=== PATIENT | female | born 1960 | race Caucasian/White ===

== ENCOUNTER 2018-12-01 02:52 | Inpatient (IN) | payer MEDICARE, MEDICAID ==
[~2018-12-01] VITALS: Ht 160 cm; Wt 55.5 kg
[2018-12-01] MEDS ORDERED: piperacillin/tazo 3.375gm/50ml 50 ML IV ONE (02:55)
[2018-12-01] MEDS ORDERED: vancomycin/NS 1 GM ADD-VANTAGE 250 ML IV ONE (02:55)
--- NOTE | 2018-12-01 03:16 | NUR ---
DANIELA WOLF ORDERED HOLD ON VANCOMYCIN AT THIS TIME
[2018-12-01 03:21] LABS: BASOPHILS # (AUTO) 0.1 X10'3 (0-0.2); BASOPHILS % (AUTO) 0.8 % (0-1); EOSINOPHILS # (AUTO) 0.2 X10'3 (0-0.9); HEMATOCRIT 35.1 % (35.0-45.0); HEMOGLOBIN 11.8 g/dl (12.0-16.0); LYMPHOCYTES # (AUTO) 2.5 X10'3 (1.1-4.8); LYMPHOCYTES % (AUTO) 14.1 % (21-51); MEAN CORPUSCULAR HEMOGLOBIN 27.6 PG (27.0-31.0); MEAN CORPUSCULAR HGB CONC 33.7 g/dL (33.0-36.5); MEAN CORPUSCULAR VOLUME 82.1 FL (78-98); MEAN PLATELET VOLUME 8.1 FL (7.4-10.4); MONOCYTES # (AUTO) 1.4 X10'3 (0-0.9); NEUTROPHILS # (AUTO) 13.7 X10'3 (1.8-7.7); NEUTROPHILS % (AUTO) 76.1 % (42-75); PLATELET COUNT 480 X10'3 (140-440); RED BLOOD COUNT 4.28 X10'6 (4.20-5.60); RED CELL DISTRIBUTION WIDTH 13.1 % (11.5-14.5)
[2018-12-01] MEDS ORDERED: ASPI-1265 PO (03:34)
[2018-12-01] MEDS ORDERED: QUET-1 PO (03:34)
[2018-12-01] MEDS ORDERED: INSU100V30 SQ (03:34)
[2018-12-01] MEDS ORDERED: OMEP40CA13 PO (03:34)
[2018-12-01] MEDS ORDERED: INSU100C10 SQ (03:34)
[2018-12-01] MEDS ORDERED: ANTIBIOTIC (03:34)
[2018-12-01 03:35] LABS: ALANINE AMINOTRANSFERASE 13 U/L (12-78); ALBUMIN 2.5 G/DL (3.4-5.0); ALBUMIN/GLOBULIN RATIO 0.5 (1.1-1.5); ALKALINE PHOSPHATASE 141 IU/L (46-116); ANION GAP 9 (8-16); ASPARTATE AMINO TRANSFERASE 8 U/L (10-37); BILIRUBIN,TOTAL 0.8 MG/DL (0.1-1.0); BLOOD UREA NITROGEN 14 MG/DL (7-18); C-REACTIVE PROTEIN 8.99 MG/DL (0.0-0.5); CALCIUM 8.8 MG/DL (8.5-10.1); CHLORIDE 97 MMOL/L (99-107); GLUCOSE 223 MG/DL (70-104); MAGNESIUM 1.4 MG/DL (1.5-2.4); POTASSIUM 3.2 MMOL/L (3.5-5.1); SODIUM 135 MMOL/L (135-145); TOTAL CARBON DIOXIDE 29.4 MMOL/L (24-32); TOTAL PROTEIN 7.6 G/DL (6.4-8.2); eGFR 57 ML/MIN
--- NOTE | 2018-12-01 03:37 | NUR ---
AMBULATED TO BATHROOM WITH WALKER. STAND BY ASSIST.
[2018-12-01 03:43] LABS: PARTIAL THROMBOPLASTIN TIME 33 SECONDS (22-32)
[2018-12-01 03:58] LABS: URINE HCG NEGATIVE (NEG)
[2018-12-01 04:02] LABS: COLOR,URINE YELLOW (Yellow); GLUCOSE, URINE 100 mg/dl (Neg); KETONES,URINE NEGATIVE (Neg); LEUKOCYTE ESTERASE ,URINE NEGATIVE (Neg); NITRITES, URINE NEGATIVE (Neg); OCCULT BLOOD,URINE NEGATIVE (Neg); PROTEIN,URINE 30 mg/dl (Neg)
[2018-12-01] MEDS ORDERED: magnesium hydroxide 30ml (MOM) UD suspension PO PRN (04:05)
[2018-12-01] MEDS ORDERED: acetaminophen 325mg tablet PO PRN (04:05)
[2018-12-01] MEDS ORDERED: HYDROmorphone inj. 0.5 MG/0.5 ML DISP.SYRIN IV PRN (04:05)
[2018-12-01 04:06] LABS: CLARITY,URINE SLIGHTLY CLOUDY (Clear); UA COLLECTION TYPE CLN CATCH MIDSTREAM
[2018-12-01] MEDS ORDERED: dextrose 50%-water 50ml dispensing syringe IV PRN ×2 (04:10)
[2018-12-01] MEDS ORDERED: glucagon, human recombinant 1mg kit SUBCUT PRN (04:10)
[2018-12-01] MEDS ORDERED: MESSAGE TO PHARMACY PO ONE (04:10)
[2018-12-01] MEDS: ondansetron/PF 4mg/2ml inj IV PRN (04:19)
[2018-12-01] MEDS: normal saline 1000ml 1,000 ML IV SCH ×2 (04:20→14:50)
[2018-12-01 04:25] LABS: BACTERIA,URINE 1+ /HPF (Neg); RBC,URINE NONE SEEN /HPF (0-2); SQUAMOUS EPITHELIAL CELL,UR MANY /LPF (FEW); WBC,URINE 0-4 /HPF (0-4)
[2018-12-01 04:42] LABS: HEMOGLOBIN A1C 9.5 % (4.5-6.2)
[2018-12-01] MEDS ORDERED: potassium CL 10mEq/100ml bag 100 ML IV PRN ×2 (06:40→09:45)
[2018-12-01] MEDS ORDERED: potassium Cl 20 mEq SR tablet PO PRN ×3 (06:40→09:45)
[2018-12-01] MEDS: mag hydrox/Alum hydrox/simeth 30ml oral suspension PO PRN (07:05)
[2018-12-01] MEDS: potassium Cl 20 mEq SR tablet PO PRN ×4 (07:05→23:25)
--- NOTE | 2018-12-01 07:12 | NUR ---
called pharmacy for vanco 750mg dose. stated will make now and bring down.
[2018-12-01] MEDS: VANCOMYCIN 750MG IV in NS 250 ML IV SCH ×2 (07:30→20:46)
[2018-12-01] MEDS: pantoprazole 40mg Tablet.DR PO SCH (07:32)
[2018-12-01] MEDS: aspirin 81mg tab.chew PO SCH (07:33)
--- NOTE | 2018-12-01 07:40 | NUR ---
Attempted to call report. RN unavailable. will call back.
--- NOTE | 2018-12-01 07:50 | NUR ---
Received report from BLANE Duggan. waiting for patient.
[2018-12-01] MEDS: enoxaparin 50mg/0.5ml (from 3ml vial) syringe SUBCUT SCH ×2 (08:00→20:11)
--- NOTE | 2018-12-01 08:20 | NUR ---
Patient arrived to floor. VSS. no complaints.
[2018-12-01 08:46] VITALS: BP 111/57
[2018-12-01] MEDS ORDERED: magnesium 4gm in 100ml NS 100 ML IV PRN (09:45)
[2018-12-01] MEDS ORDERED: magnesium 2GM in 50ml NS 50 ML IV PRN (09:45)
[2018-12-01] MEDS ORDERED: metoclopramide 5 mg/ml inj IV PRN (09:45)
[2018-12-01] MEDS: piperacillin/tazo 3.375gm/50ml 50 ML IV SCH ×2 (10:52→19:21)
[2018-12-01] MEDS: magnesium Cl slow-release 64mg tablet PO PRN ×2 (10:53→23:24)
--- NOTE | 2018-12-01 11:07 | NUR ---
Patient refused afternoon vital signs. Addendum: 12/01/18 at 1108 by Mary Chicas RN Amended: Links added.
[2018-12-01] MEDS: insulin Lispro (HumaLOG) vial - multi-dose SQ SCH (13:16)
[2018-12-01] MEDS ORDERED: AMLO10TA PO (14:57)
[2018-12-01] MEDS ORDERED: ASPI-845 PO (14:57)
[2018-12-01] MEDS ORDERED: FAMO20TA8 PO (14:57)
[2018-12-01] MEDS ORDERED: NICO-731 TOP (14:57)
[2018-12-01] MEDS ORDERED: ATOR40TA71 PO (14:57)
[2018-12-01] MEDS ORDERED: COLL30OI TP (14:57)
[2018-12-01] MEDS ORDERED: METF-436 PO (14:58)
[2018-12-01] MEDS: HYDROcodone/acetaminophen 10/325mg tab PO PRN (15:50)
--- NOTE | 2018-12-01 16:18 | NUR ---
Malnutrition consult: Pt seen at bedside endorses a good appetite despite documented 25% PO intake at lunch today. Pt reports UBW of 150 lbs with current wt of 122 lbs which pt reports was taken last week at a clinic. Pt unsure of when wt loss occurred however states her dietary pattern had changed once she started having pain in her foot three months ago. Noted that H&P indicates pt recently lost her SO. It's likely that pt with decreased PO intake and some wt loss recently however unsure if wt loss was truly as significant as pt reports d/t no documented wt hx and pt reporting good appetite. Pt reporting unrealistic information such as no BM for several weeks however denies feeling constipated or any nutrition therapy for constipation. Pt with no edema or significant decrease in muscle strength. No visible fat or muscle wasting. Pt currently does not meet criteria for malnutrition. Pt with T1DM reports seeing an MD q week for DM management and states she takes her insulin per rx without difficulties and only checks her BG levels once a day in the morning. Pt reports recent BG levels in the 200-300s d/t pain in her foot. Encouraged pt to check BG levels more frequently in order to better control her blood sugar. Pt admit with probable osteomyelitis with swelling to the left foot medial aspect of the distal metatarsal head. Pt provided with written and verbal protein and DM education with referral to outpatient DM class. Pt very passive during RD visit and presents with no questions. RD contact information provided. Will continue to follow. Recommendations: 1) Continue CHO controlled diet 2) Monitor need for ONS 3) Routine bowel care 4) Wt per rx Addendum: 12/01/18 at [address] Amended: Links added.
[2018-12-01 18:00] VITALS: BP 112/51
--- NOTE | 2018-12-01 18:19 | NUR ---
Problems reprioritized. Patient report given, questions answered & plan of care reviewed with BLANE Frost.
[2018-12-01] MEDS: HYDROmorphone 1 mg/ml syringe IV PRN ×2 (18:23→22:33)
--- NOTE | 2018-12-01 18:37 | NUR ---
Patient in room [facility]. I have received report from BLANE Locke and had the opportunity to ask questions and assume patient care. Pt is currently at MRI Addendum: 12/01/18 at 1838 by Scarlet Gallardo RN Amended: Links added.
[2018-12-01] MEDS ORDERED: VANCOMYCIN 750MG IV in NS 250 ML IV SCH (20:00)
[2018-12-01] MEDS: lactobacillus rhamnosus 10,000 MMU CELLS/CAPSULE PO SCH (20:11)
--- NOTE | 2018-12-01 20:34 | NUR ---
pt got back from MRI and had a late dinner, pt did not covered for insulin after dinner
[2018-12-01] MEDS: quetiapine 100mg tablet PO SCH (20:45)
[2018-12-01] MEDS: insulin glargine (Lantus) pen - multi-dose SQ SCH (21:42)
[2018-12-02] VITALS: BP 112/61
[2018-12-02] MEDS: normal saline 1000ml 1,000 ML IV SCH ×3 (00:03→14:12)
[2018-12-02] MEDS: piperacillin/tazo 3.375gm/50ml 50 ML IV SCH ×3 (02:37→17:45)
--- NOTE | 2018-12-02 06:15 | NUR ---
Patient in room [facility]. I have received report from Margot ARGUELLES and had the opportunity to ask questions and assume patient care.
--- NOTE | 2018-12-02 06:37 | NUR ---
Problems reprioritized. Patient report given, questions answered & plan of care reviewed with BLANE GARNICA. Addendum: 12/02/18 at 0637 by Scarlet Gallardo RN Amended: Links added.
[2018-12-02 07:13] LABS: BASOPHILS # (AUTO) 0.1 X10'3 (0-0.2); EOSINOPHILS # (AUTO) 0.2 X10'3 (0-0.9); EOSINOPHILS % (AUTO) 1.9 % (0-6); HEMATOCRIT 28.9 % (35.0-45.0); HEMOGLOBIN 9.7 g/dl (12.0-16.0); LYMPHOCYTES # (AUTO) 1.9 X10'3 (1.1-4.8); LYMPHOCYTES % (AUTO) 13.9 % (21-51); MEAN CORPUSCULAR HEMOGLOBIN 28.2 PG (27.0-31.0); MEAN CORPUSCULAR HGB CONC 33.6 g/dL (33.0-36.5); MEAN CORPUSCULAR VOLUME 83.8 FL (78-98); MEAN PLATELET VOLUME 8.5 FL (7.4-10.4); MONOCYTES % (AUTO) 7.4 % (2-12); NEUTROPHILS # (AUTO) 10.1 X10'3 (1.8-7.7); NEUTROPHILS % (AUTO) 75.8 % (42-75); PLATELET COUNT 350 X10'3 (140-440); RED BLOOD COUNT 3.45 X10'6 (4.20-5.60); RED CELL DISTRIBUTION WIDTH 12.9 % (11.5-14.5); WHITE BLOOD COUNT 13.4 X10'3 (4.5-11.0)
[2018-12-02 07:18] VITALS: BP 122/51
[2018-12-02] MEDS: VANCOMYCIN 750MG IV in NS 250 ML IV SCH ×2 (07:46→20:41)
[2018-12-02] MEDS: pantoprazole 40mg Tablet.DR PO SCH (07:46)
[2018-12-02] MEDS: lactobacillus rhamnosus 10,000 MMU CELLS/CAPSULE PO SCH ×2 (07:47→20:40)
[2018-12-02] MEDS: aspirin 81mg tab.chew PO SCH (07:47)
[2018-12-02] MEDS: enoxaparin 50mg/0.5ml (from 3ml vial) syringe SUBCUT SCH ×2 (07:48→20:41)
[2018-12-02 09:09] LABS: ALANINE AMINOTRANSFERASE 10 U/L (12-78); ALBUMIN 1.9 G/DL (3.4-5.0); ALBUMIN/GLOBULIN RATIO 0.5 (1.1-1.5); ALKALINE PHOSPHATASE 138 IU/L (46-116); ANION GAP 6 (8-16); ASPARTATE AMINO TRANSFERASE 13 U/L (10-37); BILIRUBIN,TOTAL 0.6 MG/DL (0.1-1.0); BLOOD UREA NITROGEN 8 MG/DL (7-18); BUN/CREATININE RATIO 9.1 (6.6-38.0); CALCIUM 8.2 MG/DL (8.5-10.1); CHLORIDE 106 MMOL/L (99-107); CREATININE 0.88 MG/DL (0.40-0.90); GLUCOSE 153 MG/DL (70-104); MAGNESIUM 1.5 MG/DL (1.5-2.4); POTASSIUM 4.5 MMOL/L (3.5-5.1); SODIUM 139 MMOL/L (135-145); TOTAL CARBON DIOXIDE 27.2 MMOL/L (24-32); TOTAL PROTEIN 5.9 G/DL (6.4-8.2); eGFR 66 ML/MIN
[2018-12-02] MEDS: insulin Lispro (HumaLOG) vial - multi-dose SQ SCH ×3 (10:50→18:44)
[2018-12-02 12:03] VITALS: BP 129/57
[2018-12-02] MEDS: HYDROcodone/acetaminophen 10/325mg tab PO PRN ×2 (14:12→17:45)
[2018-12-02] MEDS ORDERED: gadopentetate dimeglumine 5 mmol/10ml vial IV ONE (17:17)
[2018-12-02] MEDS ORDERED: gadopentetate dimeglumine 7.5 MMOL/15 ML syringe ONE (17:17)
[2018-12-02 18:00] VITALS: BP 133/64
--- NOTE | 2018-12-02 18:26 | NUR ---
Problems reprioritized. Patient report given, questions answered & plan of care reviewed with Margot Valero RN.
[2018-12-02] MEDS ORDERED: VANCOMYCIN LEVEL IV ONE (18:30)
[2018-12-02] MEDS: quetiapine 100mg tablet PO SCH (20:40)
[2018-12-02] MEDS: nicotine 14mg patch - 24hr TD SCH (20:53)
[2018-12-02] MEDS: insulin glargine (Lantus) pen - multi-dose SQ SCH (22:52)
[2018-12-03] VITALS: BP 125/50
[2018-12-03] MEDS: normal saline 1000ml 1,000 ML IV SCH ×2 (01:09→12:48)
[2018-12-03] MEDS: piperacillin/tazo 3.375gm/50ml 50 ML IV SCH ×3 (02:18→17:52)
[2018-12-03] MEDS: HYDROcodone/acetaminophen 10/325mg tab PO PRN ×2 (02:34→18:51)
[2018-12-03 06:15] LABS: BASOPHILS # (AUTO) 0.1 X10'3 (0-0.2); BASOPHILS % (AUTO) 0.9 % (0-1); EOSINOPHILS # (AUTO) 0.3 X10'3 (0-0.9); EOSINOPHILS % (AUTO) 2.6 % (0-6); HEMATOCRIT 26.7 % (35.0-45.0); LYMPHOCYTES # (AUTO) 2.2 X10'3 (1.1-4.8); LYMPHOCYTES % (AUTO) 17.1 % (21-51); MEAN CORPUSCULAR HEMOGLOBIN 27.9 PG (27.0-31.0); MEAN CORPUSCULAR HGB CONC 33.6 g/dL (33.0-36.5); MEAN CORPUSCULAR VOLUME 83.2 FL (78-98); MEAN PLATELET VOLUME 9.2 FL (7.4-10.4); MONOCYTES % (AUTO) 7.6 % (2-12); NEUTROPHILS # (AUTO) 9.1 X10'3 (1.8-7.7); NEUTROPHILS % (AUTO) 71.8 % (42-75); PLATELET COUNT 340 X10'3 (140-440); RED BLOOD COUNT 3.21 X10'6 (4.20-5.60); RED CELL DISTRIBUTION WIDTH 12.8 % (11.5-14.5); WHITE BLOOD COUNT 12.7 X10'3 (4.5-11.0)
[2018-12-03 06:24] LABS: ALANINE AMINOTRANSFERASE 10 U/L (12-78); ALBUMIN 1.8 G/DL (3.4-5.0); ALBUMIN/GLOBULIN RATIO 0.5 (1.1-1.5); ALKALINE PHOSPHATASE 180 IU/L (46-116); ANION GAP 7 (8-16); ASPARTATE AMINO TRANSFERASE 15 U/L (10-37); BILIRUBIN,TOTAL 0.5 MG/DL (0.1-1.0); BLOOD UREA NITROGEN 6 MG/DL (7-18); CALCIUM 8.1 MG/DL (8.5-10.1); CHLORIDE 105 MMOL/L (99-107); CREATININE 0.86 MG/DL (0.40-0.90); GLUCOSE 114 MG/DL (70-104); MAGNESIUM 1.4 MG/DL (1.5-2.4); POTASSIUM 3.4 MMOL/L (3.5-5.1); SODIUM 137 MMOL/L (135-145); TOTAL CARBON DIOXIDE 25.4 MMOL/L (24-32); TOTAL PROTEIN 5.6 G/DL (6.4-8.2); eGFR 68 ML/MIN
--- NOTE | 2018-12-03 06:30 | NUR ---
Patient in room [facility]. I have received report from Margot ARGUELLES and had the opportunity to ask questions and assume patient care.
--- NOTE | 2018-12-03 06:46 | NUR ---
Problems reprioritized. Patient report given, questions answered & plan of care reviewed with BLANE Clemente.
[2018-12-03 06:57] VITALS: BP 121/59
[2018-12-03] MEDS: potassium Cl 20 mEq SR tablet PO PRN ×3 (07:19→18:35)
[2018-12-03] MEDS: lactobacillus rhamnosus 10,000 MMU CELLS/CAPSULE PO SCH ×2 (07:19→19:51)
[2018-12-03] MEDS: aspirin 81mg tab.chew PO SCH (07:19)
[2018-12-03] MEDS: magnesium Cl slow-release 64mg tablet PO PRN (07:19)
[2018-12-03] MEDS: VANCOMYCIN 750MG IV in NS 250 ML IV SCH (07:19)
[2018-12-03] MEDS: pantoprazole 40mg Tablet.DR PO SCH (07:19)
[2018-12-03] MEDS: enoxaparin 50mg/0.5ml (from 3ml vial) syringe SUBCUT SCH ×2 (07:20→19:52)
[2018-12-03] MEDS: nicotine 14mg patch - 24hr TD SCH (07:20)
[2018-12-03 11:17] VITALS: BP 135/65
[2018-12-03 18:00] VITALS: BP 156/74
--- NOTE | 2018-12-03 18:41 | NUR ---
Problems reprioritized. Patient report given, questions answered & plan of care reviewed with Richelle ARGUELLES.
[2018-12-03] MEDS: vancomycin/NS 1 GM ADD-VANTAGE 250 ML IV SCH (19:51)
--- NOTE | 2018-12-03 21:06 | NUR ---
Patient in room [facility]. I have received report from BLANE Clemente and had the opportunity to ask questions and assume patient care. Addendum: 12/03/18 at 2106 by Richelle Pedraza RN Amended: Links added.
[2018-12-03] MEDS: insulin glargine (Lantus) pen - multi-dose SQ SCH (21:23)
[2018-12-03] MEDS: insulin Lispro (HumaLOG) vial - multi-dose SQ SCH (21:26)
[2018-12-04] VITALS (22 sets, daily range): BP systolic 113–189; BP diastolic 60–99
[2018-12-04] MEDS: piperacillin/tazo 3.375gm/50ml 50 ML IV SCH ×3 (01:26→17:32)
[2018-12-04] MEDS: normal saline 1000ml 1,000 ML IV SCH ×3 (03:01→20:55)
[2018-12-04 06:11] LABS: BASOPHILS # (AUTO) 0.1 X10'3 (0-0.2); BASOPHILS % (AUTO) 0.8 % (0-1); EOSINOPHILS # (AUTO) 0.4 X10'3 (0-0.9); EOSINOPHILS % (AUTO) 2.9 % (0-6); HEMATOCRIT 26.5 % (35.0-45.0); HEMOGLOBIN 8.8 g/dl (12.0-16.0); LYMPHOCYTES # (AUTO) 2.2 X10'3 (1.1-4.8); LYMPHOCYTES % (AUTO) 16.9 % (21-51); MEAN CORPUSCULAR HEMOGLOBIN 27.6 PG (27.0-31.0); MEAN CORPUSCULAR HGB CONC 33.3 g/dL (33.0-36.5); MEAN CORPUSCULAR VOLUME 82.9 FL (78-98); MEAN PLATELET VOLUME 8.3 FL (7.4-10.4); MONOCYTES # (AUTO) 1.2 X10'3 (0-0.9); MONOCYTES % (AUTO) 9.5 % (2-12); NEUTROPHILS # (AUTO) 9.1 X10'3 (1.8-7.7); NEUTROPHILS % (AUTO) 69.9 % (42-75); PLATELET COUNT 340 X10'3 (140-440); RED CELL DISTRIBUTION WIDTH 13.2 % (11.5-14.5); WHITE BLOOD COUNT 13.1 X10'3 (4.5-11.0)
--- NOTE | 2018-12-04 06:12 | NUR ---
Problems reprioritized. Patient report given, questions answered & plan of care reviewed with BLANE Soria. Addendum: 12/04/18 at 0613 by Richelle Pedraza RN Amended: Links added.
[2018-12-04 06:22] LABS: ALANINE AMINOTRANSFERASE 11 U/L (12-78); ALBUMIN 1.7 G/DL (3.4-5.0); ALBUMIN/GLOBULIN RATIO 0.4 (1.1-1.5); ANION GAP 6 (8-16); ASPARTATE AMINO TRANSFERASE 13 U/L (10-37); BILIRUBIN,TOTAL 0.5 MG/DL (0.1-1.0); BLOOD UREA NITROGEN 6 MG/DL (7-18); BUN/CREATININE RATIO 7.6 (6.6-38.0); CHLORIDE 106 MMOL/L (99-107); CREATININE 0.79 MG/DL (0.40-0.90); GLUCOSE 121 MG/DL (70-104); MAGNESIUM 1.4 MG/DL (1.5-2.4); SODIUM 138 MMOL/L (135-145); TOTAL CARBON DIOXIDE 26.4 MMOL/L (24-32); TOTAL PROTEIN 5.8 G/DL (6.4-8.2); eGFR 75 ML/MIN
[2018-12-04 06:33] LABS: ALKALINE PHOSPHATASE 193 IU/L (46-116)
--- NOTE | 2018-12-04 06:39 | NUR ---
Patient in room [facility]. I have received report from BLANE Soria and had the opportunity to ask questions and assume patient care.
[2018-12-04] MEDS: vancomycin/NS 1 GM ADD-VANTAGE 250 ML IV SCH ×2 (07:23→19:07)
[2018-12-04] MEDS: aspirin 81mg tab.chew PO SCH (08:00)
[2018-12-04] MEDS: lactobacillus rhamnosus 10,000 MMU CELLS/CAPSULE PO SCH ×2 (08:00→19:22)
[2018-12-04] MEDS: pantoprazole 40mg Tablet.DR PO SCH (08:00)
[2018-12-04] MEDS: enoxaparin 50mg/0.5ml (from 3ml vial) syringe SUBCUT SCH ×2 (08:00→19:23)
[2018-12-04] MEDS: nicotine 14mg patch - 24hr TD SCH (09:15)
[2018-12-04] MEDS: HYDROmorphone 1 mg/ml syringe IV PRN ×3 (09:26→21:31)
[2018-12-04 11:06] LABS: PARTIAL THROMBOPLASTIN TIME 37 SECONDS (22-32)
[2018-12-04] MEDS ORDERED: sevoflurane 250ml liquid IH ONE (12:01)
[2018-12-04] MEDS ORDERED: propofol inj 20 ML IV ONE (12:05)
[2018-12-04] MEDS ORDERED: fentaNYL/PF 50MCG/1 ML 2ML syringe ONE (12:05)
[2018-12-04] MEDS ORDERED: ringers solution, lacted 1,000 ML IV SCH (12:25)
[2018-12-04] MEDS ORDERED: morphine 4 MG/ML inj SYRINge IV PRN ×2 (12:25)
[2018-12-04] MEDS ORDERED: ondansetron/PF 4mg/2ml inj IV PRN (12:25)
[2018-12-04] MEDS ORDERED: proCHLORperazine 10 MG/2 ml inj IV PRN (12:25)
[2018-12-04] MEDS ORDERED: meperidine/PF 25mg/ml syringe IV PRN ×3 (12:25)
--- NOTE | 2018-12-04 12:36 | NUR ---
Pt transported off of unit for surgery.
--- NOTE | 2018-12-04 12:50 | NUR ---
Received from OR via [facility], accompanied by Anesthesiologist DR. KHAN and report given by Anesthesiolgist. PT ARRIVED SLEEPY, O2 VIA MASK AT 10L. DRESSIGN TO FOOT CDI. PULSES AND CORRECTIONAL CASE RECORDS SUPERVISOR WNL T/O. HERNANDEZ WITH [facility].
--- NOTE | 2018-12-04 13:37 | NUR ---
Received pt report from BLANE Damon in recovery room post-op transmetarsal amputation of L foot. 100mL EBL, accucheck 95, b/p 135/75, HR 74, RR 16, 96% O2 sats on room air. 25mg demerol given for 10/10 pain. Awaiting patient's return to room [facility].
--- NOTE | 2018-12-04 13:50 | NUR ---
Report called to receiving nurse SUE ARGUELLES. Transferred via [facility] WITH NO Belongings BROGUHT TO THE RR. VSS ON RA. Special Issues communicated to receiving nurse.
--- NOTE | 2018-12-04 13:55 | NUR ---
Pt returned to room s/p metatarsal amputation.
--- NOTE | 2018-12-04 14:34 | NUR ---
WOC attempted to see pt regarding Left Great Toe, though upon examination pt was s/p metatarsal amputation...
--- NOTE | 2018-12-04 17:50 | NUR ---
Paged Dr. Hernandez re increasing blood pressures. PAGER ID: [phone] MESSAGE: Pt Natasha Salazar in [facility]. B/P increasing, up to 189/94. Thanks! Katherine ARGUELLES [phone]
[2018-12-04] MEDS ORDERED: hydrALAZINE 20mg/ml inj. IV PRN (18:05)
--- NOTE | 2018-12-04 18:32 | NUR ---
Problems reprioritized. Patient report given, questions answered & plan of care reviewed with BLANE Ma.
[2018-12-04] MEDS: HYDROcodone/acetaminophen 10/325mg tab PO PRN (19:31)
[2018-12-04] MEDS: insulin glargine (Lantus) pen - multi-dose SQ SCH (20:55)
[2018-12-05] VITALS: BP 169/86
[2018-12-05] MEDS: HYDROcodone/acetaminophen 10/325mg tab PO PRN ×3 (00:56→23:22)
[2018-12-05] MEDS: piperacillin/tazo 3.375gm/50ml 50 ML IV SCH ×3 (00:57→17:44)
[2018-12-05 01:06] VITALS: BP 137/76
[2018-12-05 04:00] VITALS: BP 116/60
[2018-12-05] MEDS: HYDROmorphone 1 mg/ml syringe IV PRN ×3 (04:08→17:51)
[2018-12-05 05:29] LABS: BASOPHILS # (AUTO) 0.1 X10'3 (0-0.2); BASOPHILS % (AUTO) 0.9 % (0-1); EOSINOPHILS # (AUTO) 0.4 X10'3 (0-0.9); EOSINOPHILS % (AUTO) 2.9 % (0-6); HEMATOCRIT 30.6 % (35.0-45.0); LYMPHOCYTES % (AUTO) 15.7 % (21-51); MEAN CORPUSCULAR HEMOGLOBIN 27.2 PG (27.0-31.0); MEAN CORPUSCULAR HGB CONC 32.7 g/dL (33.0-36.5); MEAN CORPUSCULAR VOLUME 83.2 FL (78-98); MEAN PLATELET VOLUME 8.9 FL (7.4-10.4); MONOCYTES # (AUTO) 1.2 X10'3 (0-0.9); MONOCYTES % (AUTO) 9.8 % (2-12); NEUTROPHILS # (AUTO) 8.9 X10'3 (1.8-7.7); NEUTROPHILS % (AUTO) 70.7 % (42-75); PLATELET COUNT 418 X10'3 (140-440); RED BLOOD COUNT 3.67 X10'6 (4.20-5.60); RED CELL DISTRIBUTION WIDTH 13.3 % (11.5-14.5); WHITE BLOOD COUNT 12.6 X10'3 (4.5-11.0)
[2018-12-05 05:52] LABS: ALANINE AMINOTRANSFERASE 9 U/L (12-78); ALBUMIN 1.7 G/DL (3.4-5.0); ALBUMIN/GLOBULIN RATIO 0.4 (1.1-1.5); ALKALINE PHOSPHATASE 211 IU/L (46-116); ANION GAP 8 (8-16); ASPARTATE AMINO TRANSFERASE 9 U/L (10-37); BILIRUBIN,TOTAL 0.4 MG/DL (0.1-1.0); BLOOD UREA NITROGEN 3 MG/DL (7-18); BUN/CREATININE RATIO 4.2 (6.6-38.0); CALCIUM 8.3 MG/DL (8.5-10.1); CHLORIDE 107 MMOL/L (99-107); CREATININE 0.71 MG/DL (0.40-0.90); GLUCOSE 93 MG/DL (70-104); MAGNESIUM 1.7 MG/DL (1.5-2.4); POTASSIUM 3.5 MMOL/L (3.5-5.1); SODIUM 142 MMOL/L (135-145); TOTAL CARBON DIOXIDE 27.5 MMOL/L (24-32); TOTAL PROTEIN 6.1 G/DL (6.4-8.2); VANCOMYCIN,TROUGH 18.4 UG/ML (6.0-14.0); eGFR 85 ML/MIN
[2018-12-05] MEDS ORDERED: VANCOMYCIN LEVEL IV ONE (06:30)
--- NOTE | 2018-12-05 06:38 | NUR ---
Problems reprioritized. Patient report given, questions answered & plan of care reviewed with Horacio ARGUELLES.
[2018-12-05] MEDS: dextrose ORAL solution 15 GM/59 ML bottle PO PRN ×3 (07:15→17:20)
[2018-12-05 08:02] VITALS: BP 116/63
[2018-12-05] MEDS: normal saline 1000ml 1,000 ML IV SCH ×2 (08:03→17:45)
[2018-12-05] MEDS: aspirin 81mg tab.chew PO SCH (08:23)
[2018-12-05] MEDS: lactobacillus rhamnosus 10,000 MMU CELLS/CAPSULE PO SCH ×2 (08:23→19:30)
[2018-12-05] MEDS: pantoprazole 40mg Tablet.DR PO SCH (08:23)
[2018-12-05] MEDS: vancomycin/NS 1 GM ADD-VANTAGE 250 ML IV SCH (08:23)
[2018-12-05] MEDS: nicotine 14mg patch - 24hr TD SCH (08:24)
[2018-12-05] MEDS: enoxaparin 50mg/0.5ml (from 3ml vial) syringe SUBCUT SCH ×2 (08:24→19:30)
[2018-12-05 11:39] VITALS: BP 121/63
[2018-12-05] MEDS: insulin Lispro (HumaLOG) vial - multi-dose SQ SCH (13:08)
[2018-12-05 18:00] VITALS: BP 128/57
--- NOTE | 2018-12-05 18:25 | NUR ---
Problems reprioritized. Patient report given, questions answered & plan of care reviewed with BLANE MINA.
--- NOTE | 2018-12-05 18:35 | NUR ---
Patient in room [facility]. I have received report from BLANE Leonard and had the opportunity to ask questions and assume patient care.
[2018-12-05] MEDS: insulin glargine (Lantus) pen - multi-dose SQ SCH (21:00)
[2018-12-06] MEDS: mag hydrox/Alum hydrox/simeth 30ml oral suspension PO PRN (00:20)
[2018-12-06 00:34] VITALS: BP 139/77
[2018-12-06] MEDS: HYDROmorphone 1 mg/ml syringe IV PRN ×2 (01:28→18:31)
[2018-12-06] MEDS: piperacillin/tazo 3.375gm/50ml 50 ML IV SCH ×3 (01:55→18:04)
[2018-12-06] MEDS: normal saline 1000ml 1,000 ML IV SCH ×3 (03:31→23:40)
[2018-12-06 05:53] LABS: BASOPHILS # (AUTO) 0.1 X10'3 (0-0.2); BASOPHILS % (AUTO) 0.8 % (0-1); EOSINOPHILS # (AUTO) 0.3 X10'3 (0-0.9); EOSINOPHILS % (AUTO) 2.2 % (0-6); HEMATOCRIT 27.2 % (35.0-45.0); HEMOGLOBIN 9.1 g/dl (12.0-16.0); LYMPHOCYTES # (AUTO) 1.8 X10'3 (1.1-4.8); LYMPHOCYTES % (AUTO) 12.7 % (21-51); MEAN CORPUSCULAR HEMOGLOBIN 27.8 PG (27.0-31.0); MEAN CORPUSCULAR HGB CONC 33.5 g/dL (33.0-36.5); MEAN CORPUSCULAR VOLUME 83.1 FL (78-98); MEAN PLATELET VOLUME 8.6 FL (7.4-10.4); MONOCYTES # (AUTO) 1.5 X10'3 (0-0.9); MONOCYTES % (AUTO) 10.9 % (2-12); NEUTROPHILS # (AUTO) 10.4 X10'3 (1.8-7.7); NEUTROPHILS % (AUTO) 73.4 % (42-75); PLATELET COUNT 374 X10'3 (140-440); RED BLOOD COUNT 3.27 X10'6 (4.20-5.60); RED CELL DISTRIBUTION WIDTH 13.3 % (11.5-14.5); WHITE BLOOD COUNT 14.1 X10'3 (4.5-11.0)
[2018-12-06 06:05] LABS: ALANINE AMINOTRANSFERASE 9 U/L (12-78); ALBUMIN 1.6 G/DL (3.4-5.0); ALBUMIN/GLOBULIN RATIO 0.4 (1.1-1.5); ALKALINE PHOSPHATASE 251 IU/L (46-116); ANION GAP 9 (8-16); ASPARTATE AMINO TRANSFERASE 11 U/L (10-37); BILIRUBIN,TOTAL 0.5 MG/DL (0.1-1.0); BLOOD UREA NITROGEN 10 MG/DL (7-18); CALCIUM 8.2 MG/DL (8.5-10.1); CHLORIDE 104 MMOL/L (99-107); CREATININE 1.67 MG/DL (0.40-0.90); GLUCOSE 138 MG/DL (70-104); MAGNESIUM 1.7 MG/DL (1.5-2.4); POTASSIUM 4.1 MMOL/L (3.5-5.1); SODIUM 139 MMOL/L (135-145); TOTAL CARBON DIOXIDE 26.1 MMOL/L (24-32); TOTAL PROTEIN 5.7 G/DL (6.4-8.2); eGFR 32 ML/MIN
--- NOTE | 2018-12-06 06:11 | NUR ---
Problems reprioritized. Patient report given, questions answered & plan of care reviewed with BLANE Perez.
[2018-12-06] MEDS: amLODIPine 5mg tablet PO SCH (07:17)
[2018-12-06] MEDS: pantoprazole 40mg Tablet.DR PO SCH (07:17)
[2018-12-06] MEDS: lactobacillus rhamnosus 10,000 MMU CELLS/CAPSULE PO SCH ×2 (07:17→19:21)
[2018-12-06] MEDS: atorvastatin 20mg tablet PO SCH (07:17)
[2018-12-06] MEDS: aspirin 325mg tablet, delayed-release (Ecotrin) PO SCH (07:17)
[2018-12-06] MEDS: nicotine 14mg patch - 24hr TD SCH (07:18)
[2018-12-06] MEDS: HYDROcodone/acetaminophen 10/325mg tab PO PRN ×2 (07:18→14:19)
[2018-12-06] MEDS: enoxaparin 50mg/0.5ml (from 3ml vial) syringe SUBCUT SCH ×2 (07:20→19:31)
[2018-12-06 08:06] VITALS: BP 133/69
--- NOTE | 2018-12-06 11:17 | NUR ---
Reassessment: Pt s/p left transmetatarsal amputation d/t osteomyelitis and myositis. PO intake fluctuates, previously with 50% PO intake which increased to 100% however was low following amputation, pending PO intake for today. [facility] 12/05. Will continue to follow and monitor need for ONS. Recommendations: 1) Continue CHO controlled diet 2) Monitor need for ONS 3) Routine bowel care 4) Wt per rx Addendum: 12/06/18 at [address] Amended: Links added.
[2018-12-06 11:55] VITALS: BP 133/59
--- NOTE | 2018-12-06 18:27 | NUR ---
Problems reprioritized. Patient report given, questions answered & plan of care reviewed with donna champion.
[2018-12-06] MEDS ORDERED: vancomycin/NS 1 GM ADD-VANTAGE 250 ML IV SCH (19:00)
--- NOTE | 2018-12-06 19:13 | NUR ---
Patient in room [facility]. I have received report from Ana ARGUELLES and had the opportunity to ask questions and assume patient care.
[2018-12-06] MEDS: insulin Lispro (HumaLOG) vial - multi-dose SQ SCH (19:17)
[2018-12-06 20:00] VITALS: BP 125/72
[2018-12-06] MEDS: insulin glargine (Lantus) pen - multi-dose SQ SCH (21:00)
[2018-12-07 00:18] VITALS: BP 152/59
[2018-12-07] MEDS: HYDROmorphone 1 mg/ml syringe IV PRN ×3 (01:16→20:47)
--- NOTE | 2018-12-07 06:24 | NUR ---
Problems reprioritized. Patient report given, questions answered & plan of care reviewed with Vernell ARGUELLES.
--- NOTE | 2018-12-07 06:27 | NUR ---
Patient in room [facility]. I have received report from BLANE Cruz and had the opportunity to ask questions and assume patient care.
[2018-12-07 07:30] VITALS: BP 149/74
[2018-12-07] MEDS: lactobacillus rhamnosus 10,000 MMU CELLS/CAPSULE PO SCH ×2 (08:59→20:44)
[2018-12-07] MEDS: amLODIPine 5mg tablet PO SCH (08:59)
[2018-12-07] MEDS: aspirin 325mg tablet, delayed-release (Ecotrin) PO SCH (08:59)
[2018-12-07] MEDS: pantoprazole 40mg Tablet.DR PO SCH (08:59)
[2018-12-07] MEDS: atorvastatin 20mg tablet PO SCH (08:59)
[2018-12-07] MEDS: nicotine 14mg patch - 24hr TD SCH (09:01)
[2018-12-07] MEDS: enoxaparin 50mg/0.5ml (from 3ml vial) syringe SUBCUT SCH ×2 (09:04→20:46)
[2018-12-07 11:00] VITALS: BP 128/72
[2018-12-07] MEDS: normal saline 1000ml 1,000 ML IV SCH ×3 (11:32→21:12)
--- NOTE | 2018-12-07 12:00 | NUR ---
Dressing to left foot changed per written orders. Dressing removed for Malathi Goncalves NP to assess, photo taken per Malathi Goncalves's request and added to chart.
[2018-12-07] MEDS: insulin Lispro (HumaLOG) vial - multi-dose SQ SCH ×2 (12:55→18:50)
[2018-12-07] MEDS: HYDROcodone/acetaminophen 10/325mg tab PO PRN (13:10)
[2018-12-07] MEDS: amox tr/potassium clavulanate 875/125mg TAB PO SCH (17:35)
--- NOTE | 2018-12-07 18:30 | NUR ---
Patient in room [facility]. I have received report from Vernell ARGUELLES and had the opportunity to ask questions and assume patient care.
--- NOTE | 2018-12-07 18:30 | NUR ---
Problems reprioritized. Patient report given, questions answered & plan of care reviewed with BLANE Cosme.
[2018-12-07 19:00] VITALS: BP 132/65
[2018-12-07] MEDS: insulin glargine (Lantus) pen - multi-dose SQ SCH (21:00)
[2018-12-08] VITALS: BP 112/50
[2018-12-08] MEDS: HYDROmorphone 1 mg/ml syringe IV PRN ×2 (01:08→06:06)
--- NOTE | 2018-12-08 06:26 | NUR ---
Patient in room [facility]. I have received report from BLANE Cosme and had the opportunity to ask questions and assume patient care.
[2018-12-08 07:30] VITALS: BP 117/55
[2018-12-08] MEDS: atorvastatin 20mg tablet PO SCH (08:02)
[2018-12-08] MEDS: lactobacillus rhamnosus 10,000 MMU CELLS/CAPSULE PO SCH ×2 (08:02→20:49)
[2018-12-08] MEDS: pantoprazole 40mg Tablet.DR PO SCH (08:02)
[2018-12-08] MEDS: aspirin 325mg tablet, delayed-release (Ecotrin) PO SCH (08:02)
[2018-12-08] MEDS: amox tr/potassium clavulanate 875/125mg TAB PO SCH ×2 (08:02→17:35)
[2018-12-08] MEDS: nicotine 14mg patch - 24hr TD SCH (08:02)
[2018-12-08] MEDS: amLODIPine 5mg tablet PO SCH (08:02)
[2018-12-08] MEDS: enoxaparin 50mg/0.5ml (from 3ml vial) syringe SUBCUT SCH ×2 (08:03→20:50)
[2018-12-08] MEDS: normal saline 1000ml 1,000 ML IV SCH (08:04)
[2018-12-08] MEDS: insulin Lispro (HumaLOG) vial - multi-dose SQ SCH ×3 (08:13→18:45)
--- NOTE | 2018-12-08 09:00 | NUR ---
Dressing changed per written orders with Dr Greenwood at bedside. Photo taken per MD request and placed in chart.
[2018-12-08 11:11] LABS: BASOPHILS # (AUTO) 0.1 X10'3 (0-0.2); EOSINOPHILS # (AUTO) 0.3 X10'3 (0-0.9); EOSINOPHILS % (AUTO) 2.6 % (0-6); HEMATOCRIT 27.5 % (35.0-45.0); HEMOGLOBIN 8.9 g/dl (12.0-16.0); LYMPHOCYTES # (AUTO) 1.6 X10'3 (1.1-4.8); LYMPHOCYTES % (AUTO) 12.3 % (21-51); MEAN CORPUSCULAR HGB CONC 32.3 g/dL (33.0-36.5); MEAN CORPUSCULAR VOLUME 83.6 FL (78-98); MEAN PLATELET VOLUME 8.6 FL (7.4-10.4); MONOCYTES # (AUTO) 1.1 X10'3 (0-0.9); MONOCYTES % (AUTO) 8.6 % (2-12); NEUTROPHILS # (AUTO) 10.1 X10'3 (1.8-7.7); NEUTROPHILS % (AUTO) 75.5 % (42-75); PLATELET COUNT 448 X10'3 (140-440); RED BLOOD COUNT 3.29 X10'6 (4.20-5.60); RED CELL DISTRIBUTION WIDTH 13.7 % (11.5-14.5); WHITE BLOOD COUNT 13.3 X10'3 (4.5-11.0)
[2018-12-08 11:23] LABS: ALANINE AMINOTRANSFERASE 14 U/L (12-78); ALBUMIN 1.6 G/DL (3.4-5.0); ALBUMIN/GLOBULIN RATIO 0.4 (1.1-1.5); ALKALINE PHOSPHATASE 390 IU/L (46-116); ANION GAP 7 (8-16); ASPARTATE AMINO TRANSFERASE 19 U/L (10-37); BILIRUBIN,TOTAL 0.3 MG/DL (0.1-1.0); BLOOD UREA NITROGEN 10 MG/DL (7-18); BUN/CREATININE RATIO 6.5 (6.6-38.0); CALCIUM 8.3 MG/DL (8.5-10.1); CHLORIDE 106 MMOL/L (99-107); CREATININE 1.54 MG/DL (0.40-0.90); GLUCOSE 173 MG/DL (70-104); POTASSIUM 4.3 MMOL/L (3.5-5.1); SODIUM 140 MMOL/L (135-145); TOTAL CARBON DIOXIDE 26.7 MMOL/L (24-32); eGFR 35 ML/MIN
[2018-12-08 11:31] VITALS: BP 122/58
--- NOTE | 2018-12-08 12:30 | NUR ---
Pt refusing to have new PIC placed by PICC BLANE. Current PIV, dated 12/03, shows no signs/symptoms of inflammation or infiltration. Will continue to monitor. Addendum: 12/08/18 at 1232 by Vernell Cole RN PIV, not PIC
[2018-12-08] MEDS: HYDROcodone/acetaminophen 10/325mg tab PO PRN ×2 (16:12→20:50)
--- NOTE | 2018-12-08 18:28 | NUR ---
Problems reprioritized. Patient report given, questions answered & plan of care reviewed with BLANE Cosme.
--- NOTE | 2018-12-08 18:30 | NUR ---
Patient in room [facility]. I have received report from Vernell ARGUELLES and had the opportunity to ask questions and assume patient care.
[2018-12-08 19:30] VITALS: BP 160/73
[2018-12-08] MEDS: insulin glargine (Lantus) pen - multi-dose SQ SCH (21:33)
[2018-12-09] VITALS: BP 130/53
[2018-12-09] MEDS: HYDROcodone/acetaminophen 10/325mg tab PO PRN ×2 (02:11→16:52)
--- NOTE | 2018-12-09 06:30 | NUR ---
Problems reprioritized. Patient report given, questions answered & plan of care reviewed with Jax ARGUELLES.
[2018-12-09 07:00] VITALS: BP 153/52
--- NOTE | 2018-12-09 07:01 | NUR ---
Patient in room [facility]. I have received report from Carmelina ARGUELLES and had the opportunity to ask questions and assume patient care.
[2018-12-09] MEDS: amox tr/potassium clavulanate 875/125mg TAB PO SCH ×2 (08:09→16:51)
[2018-12-09] MEDS: atorvastatin 20mg tablet PO SCH (08:10)
[2018-12-09] MEDS: nicotine 14mg patch - 24hr TD SCH (08:10)
[2018-12-09] MEDS: aspirin 325mg tablet, delayed-release (Ecotrin) PO SCH (08:10)
[2018-12-09] MEDS: amLODIPine 5mg tablet PO SCH (08:10)
[2018-12-09] MEDS: lactobacillus rhamnosus 10,000 MMU CELLS/CAPSULE PO SCH ×2 (08:10→20:00)
[2018-12-09] MEDS: pantoprazole 40mg Tablet.DR PO SCH (08:10)
[2018-12-09] MEDS: HYDROmorphone 1 mg/ml syringe IV PRN ×2 (08:22→20:02)
[2018-12-09] MEDS: enoxaparin 50mg/0.5ml (from 3ml vial) syringe SUBCUT SCH ×2 (10:53→20:01)
[2018-12-09 11:00] VITALS: BP 139/67
[2018-12-09 11:03] LABS: BASOPHILS # (AUTO) 0.2 X10'3 (0-0.2); BASOPHILS % (AUTO) 1.4 % (0-1); EOSINOPHILS # (AUTO) 0.4 X10'3 (0-0.9); EOSINOPHILS % (AUTO) 2.5 % (0-6); HEMATOCRIT 27.4 % (35.0-45.0); HEMOGLOBIN 9.2 g/dl (12.0-16.0); LYMPHOCYTES # (AUTO) 1.8 X10'3 (1.1-4.8); LYMPHOCYTES % (AUTO) 12.7 % (21-51); MEAN CORPUSCULAR HEMOGLOBIN 27.8 PG (27.0-31.0); MEAN CORPUSCULAR HGB CONC 33.6 g/dL (33.0-36.5); MEAN CORPUSCULAR VOLUME 82.8 FL (78-98); MEAN PLATELET VOLUME 7.9 FL (7.4-10.4); MONOCYTES # (AUTO) 1.2 X10'3 (0-0.9); NEUTROPHILS # (AUTO) 10.9 X10'3 (1.8-7.7); NEUTROPHILS % (AUTO) 75.4 % (42-75); PLATELET COUNT 473 X10'3 (140-440); RED CELL DISTRIBUTION WIDTH 13.6 % (11.5-14.5); WHITE BLOOD COUNT 14.4 X10'3 (4.5-11.0)
[2018-12-09 11:20] LABS: ALANINE AMINOTRANSFERASE 14 U/L (12-78); ALBUMIN 1.7 G/DL (3.4-5.0); ALBUMIN/GLOBULIN RATIO 0.4 (1.1-1.5); ALKALINE PHOSPHATASE 357 IU/L (46-116); ANION GAP 9 (8-16); ASPARTATE AMINO TRANSFERASE 17 U/L (10-37); BILIRUBIN,TOTAL 0.3 MG/DL (0.1-1.0); BLOOD UREA NITROGEN 10 MG/DL (7-18); BUN/CREATININE RATIO 6.5 (6.6-38.0); CALCIUM 8.5 MG/DL (8.5-10.1); CHLORIDE 107 MMOL/L (99-107); CHOL/HDL RATIO 3.8 (0.00-4.99); CHOLESTEROL 95 MG/DL (0-200); CREATININE 1.54 MG/DL (0.40-0.90); GLUCOSE 99 MG/DL (70-104); HDL CHOLESTEROL 25 MG/DL (35-60); LDL CHOLESTEROL 52 MG/DL (50-100); POTASSIUM 4.1 MMOL/L (3.5-5.1); SODIUM 142 MMOL/L (135-145); TOTAL CARBON DIOXIDE 26.5 MMOL/L (24-32); TOTAL PROTEIN 6.1 G/DL (6.4-8.2); TRIGLYCERIDES 89 MG/DL (20-135); eGFR 35 ML/MIN
[2018-12-09] MEDS ORDERED: VANCOMYCIN LEVEL IV ONE (18:30)
--- NOTE | 2018-12-09 18:36 | NUR ---
Patient in room [facility]. I have received report from Jax ARGUELLES and had the opportunity to ask questions and assume patient care.
--- NOTE | 2018-12-09 18:47 | NUR ---
Problems reprioritized. Patient report given, questions answered & plan of care reviewed with Carmelina ARGUELLES.
[2018-12-09 19:00] VITALS: BP 140/70
[2018-12-09] MEDS: insulin Lispro (HumaLOG) vial - multi-dose SQ SCH (19:01)
[2018-12-09] MEDS: insulin glargine (Lantus) pen - multi-dose SQ SCH (21:00)
[2018-12-09] MEDS: dextrose ORAL solution 15 GM/59 ML bottle PO PRN (21:03)
[2018-12-10] VITALS: BP 145/66
[2018-12-10] MEDS: temazepam 15mg capsule PO PRN (00:07)
[2018-12-10] MEDS: HYDROcodone/acetaminophen 10/325mg tab PO PRN ×2 (03:21→19:53)
[2018-12-10 06:05] LABS: BASOPHILS # (AUTO) 0.2 X10'3 (0-0.2); BASOPHILS % (AUTO) 1.2 % (0-1); EOSINOPHILS # (AUTO) 0.4 X10'3 (0-0.9); EOSINOPHILS % (AUTO) 2.7 % (0-6); HEMATOCRIT 27.2 % (35.0-45.0); LYMPHOCYTES # (AUTO) 1.7 X10'3 (1.1-4.8); LYMPHOCYTES % (AUTO) 12.7 % (21-51); MEAN CORPUSCULAR HEMOGLOBIN 27.4 PG (27.0-31.0); MEAN CORPUSCULAR HGB CONC 33.1 g/dL (33.0-36.5); MEAN CORPUSCULAR VOLUME 82.9 FL (78-98); MEAN PLATELET VOLUME 8.4 FL (7.4-10.4); MONOCYTES # (AUTO) 1.1 X10'3 (0-0.9); MONOCYTES % (AUTO) 8.1 % (2-12); NEUTROPHILS # (AUTO) 10.2 X10'3 (1.8-7.7); NEUTROPHILS % (AUTO) 75.3 % (42-75); PLATELET COUNT 502 X10'3 (140-440); RED BLOOD COUNT 3.28 X10'6 (4.20-5.60); RED CELL DISTRIBUTION WIDTH 13.7 % (11.5-14.5); WHITE BLOOD COUNT 13.6 X10'3 (4.5-11.0)
--- NOTE | 2018-12-10 06:05 | NUR ---
Problems reprioritized. Patient report given, questions answered & plan of care reviewed with Jax ARGUELLES.
[2018-12-10 06:21] LABS: ALANINE AMINOTRANSFERASE 12 U/L (12-78); ALBUMIN 1.8 G/DL (3.4-5.0); ALBUMIN/GLOBULIN RATIO 0.4 (1.1-1.5); ALKALINE PHOSPHATASE 348 IU/L (46-116); ANION GAP 9 (8-16); ASPARTATE AMINO TRANSFERASE 13 U/L (10-37); BILIRUBIN,TOTAL 0.4 MG/DL (0.1-1.0); BLOOD UREA NITROGEN 10 MG/DL (7-18); BUN/CREATININE RATIO 7.2 (6.6-38.0); CALCIUM 8.8 MG/DL (8.5-10.1); CHLORIDE 106 MMOL/L (99-107); CREATININE 1.38 MG/DL (0.40-0.90); GLUCOSE 113 MG/DL (70-104); POTASSIUM 3.7 MMOL/L (3.5-5.1); SODIUM 141 MMOL/L (135-145); TOTAL CARBON DIOXIDE 26.3 MMOL/L (24-32); TOTAL PROTEIN 6.2 G/DL (6.4-8.2); eGFR 40 ML/MIN
--- NOTE | 2018-12-10 06:26 | NUR ---
Patient in room [facility]. I have received report from Carmelina ARGUELLES and had the opportunity to ask questions and assume patient care.
[2018-12-10] MEDS: nicotine 14mg patch - 24hr TD SCH (08:49)
[2018-12-10] MEDS: lactobacillus rhamnosus 10,000 MMU CELLS/CAPSULE PO SCH ×2 (08:51→19:52)
[2018-12-10] MEDS: aspirin 325mg tablet, delayed-release (Ecotrin) PO SCH (08:51)
[2018-12-10] MEDS: atorvastatin 20mg tablet PO SCH (08:51)
[2018-12-10] MEDS: pantoprazole 40mg Tablet.DR PO SCH (08:51)
[2018-12-10] MEDS: amox tr/potassium clavulanate 875/125mg TAB PO SCH ×2 (08:51→17:57)
[2018-12-10] MEDS: amLODIPine 5mg tablet PO SCH (08:51)
[2018-12-10] MEDS: enoxaparin 50mg/0.5ml (from 3ml vial) syringe SUBCUT SCH ×2 (08:52→20:43)
[2018-12-10] MEDS: HYDROmorphone 1 mg/ml syringe IV PRN ×3 (08:54→23:25)
[2018-12-10 11:00] VITALS: BP 138/62
--- NOTE | 2018-12-10 18:51 | NUR ---
Problems reprioritized. Patient report given, questions answered & plan of care reviewed with Margot Rich RN.
[2018-12-10 20:00] VITALS: BP 145/67
[2018-12-10] MEDS: insulin glargine (Lantus) pen - multi-dose SQ SCH (21:00)
[2018-12-11] VITALS: BP 139/62
[2018-12-11 04:48] LABS: BASOPHILS # (AUTO) 0.2 X10'3 (0-0.2); BASOPHILS % (AUTO) 1.4 % (0-1); EOSINOPHILS # (AUTO) 0.4 X10'3 (0-0.9); EOSINOPHILS % (AUTO) 3.8 % (0-6); HEMATOCRIT 25.9 % (35.0-45.0); HEMOGLOBIN 8.6 g/dl (12.0-16.0); LYMPHOCYTES # (AUTO) 1.9 X10'3 (1.1-4.8); LYMPHOCYTES % (AUTO) 16.5 % (21-51); MEAN CORPUSCULAR HEMOGLOBIN 27.6 PG (27.0-31.0); MEAN CORPUSCULAR HGB CONC 33.1 g/dL (33.0-36.5); MEAN CORPUSCULAR VOLUME 83.3 FL (78-98); MEAN PLATELET VOLUME 8.3 FL (7.4-10.4); MONOCYTES % (AUTO) 8.5 % (2-12); NEUTROPHILS % (AUTO) 69.8 % (42-75); PLATELET COUNT 485 X10'3 (140-440); RED BLOOD COUNT 3.11 X10'6 (4.20-5.60); RED CELL DISTRIBUTION WIDTH 13.9 % (11.5-14.5); WHITE BLOOD COUNT 11.4 X10'3 (4.5-11.0)
[2018-12-11 04:53] LABS: ALANINE AMINOTRANSFERASE 12 U/L (12-78); ALBUMIN 1.9 G/DL (3.4-5.0); ALBUMIN/GLOBULIN RATIO 0.5 (1.1-1.5); ALKALINE PHOSPHATASE 350 IU/L (46-116); ANION GAP 10 (8-16); ASPARTATE AMINO TRANSFERASE 19 U/L (10-37); BILIRUBIN,TOTAL 0.4 MG/DL (0.1-1.0); BLOOD UREA NITROGEN 12 MG/DL (7-18); BUN/CREATININE RATIO 8.2 (6.6-38.0); CALCIUM 8.8 MG/DL (8.5-10.1); CHLORIDE 105 MMOL/L (99-107); CREATININE 1.47 MG/DL (0.40-0.90); GLUCOSE 142 MG/DL (70-104); POTASSIUM 3.9 MMOL/L (3.5-5.1); SODIUM 142 MMOL/L (135-145); TOTAL PROTEIN 6.1 G/DL (6.4-8.2); eGFR 37 ML/MIN
--- NOTE | 2018-12-11 06:15 | NUR ---
Patient in room [facility]. I have received report from Margot ARGUELLES and had the opportunity to ask questions and assume patient care.
--- NOTE | 2018-12-11 06:31 | NUR ---
Problems reprioritized. Patient report given, questions answered & plan of care reviewed with BLANE Clemente.
[2018-12-11 07:37] VITALS: BP 137/66
[2018-12-11] MEDS: amox tr/potassium clavulanate 875/125mg TAB PO SCH ×2 (07:43→16:56)
[2018-12-11] MEDS: pantoprazole 40mg Tablet.DR PO SCH (07:43)
[2018-12-11] MEDS: atorvastatin 20mg tablet PO SCH (07:43)
[2018-12-11] MEDS: amLODIPine 5mg tablet PO SCH (07:43)
[2018-12-11] MEDS: lactobacillus rhamnosus 10,000 MMU CELLS/CAPSULE PO SCH ×2 (07:43→19:15)
[2018-12-11] MEDS: aspirin 325mg tablet, delayed-release (Ecotrin) PO SCH (07:43)
[2018-12-11] MEDS: enoxaparin 50mg/0.5ml (from 3ml vial) syringe SUBCUT SCH ×2 (07:44→19:17)
[2018-12-11] MEDS: nicotine 14mg patch - 24hr TD SCH (07:44)
[2018-12-11] MEDS: HYDROcodone/acetaminophen 10/325mg tab PO PRN ×3 (10:39→19:17)
[2018-12-11 11:59] VITALS: BP 140/64
--- NOTE | 2018-12-11 12:00 | NUR ---
Dr. Sweeney called and informed of pt has purple discoloration below surgical incision site and is boggy to touch over the purple discloration below the site. Dr. Sweeney stated, "I will come and look at it but I am not going to do anything about it." Will continue to monitor.
--- NOTE | 2018-12-11 15:30 | NUR ---
Dr. Sweeney in to see patient. visualized surgical wound and expressed hematoma. MD redressed wound. No new orders at this time. Will continue to monitor.
--- NOTE | 2018-12-11 18:28 | NUR ---
Problems reprioritized. Patient report given, questions answered & plan of care reviewed with Margot ARGUELLES.
[2018-12-11] MEDS: temazepam 15mg capsule PO PRN (19:19)
[2018-12-11 20:00] VITALS: BP 119/62
[2018-12-11] MEDS: insulin glargine (Lantus) pen - multi-dose SQ SCH (21:33)
[2018-12-12] VITALS: BP 134/68
[2018-12-12] MEDS: HYDROcodone/acetaminophen 10/325mg tab PO PRN ×3 (01:17→21:24)
[2018-12-12 06:09] LABS: BASOPHILS # (AUTO) 0.1 X10'3 (0-0.2); EOSINOPHILS # (AUTO) 0.4 X10'3 (0-0.9); EOSINOPHILS % (AUTO) 3.4 % (0-6); HEMATOCRIT 24.2 % (35.0-45.0); HEMOGLOBIN 8.1 g/dl (12.0-16.0); LYMPHOCYTES # (AUTO) 1.6 X10'3 (1.1-4.8); LYMPHOCYTES % (AUTO) 12.3 % (21-51); MEAN CORPUSCULAR HEMOGLOBIN 27.9 PG (27.0-31.0); MEAN CORPUSCULAR HGB CONC 33.6 g/dL (33.0-36.5); MEAN CORPUSCULAR VOLUME 82.9 FL (78-98); MEAN PLATELET VOLUME 8.5 FL (7.4-10.4); MONOCYTES % (AUTO) 7.9 % (2-12); NEUTROPHILS # (AUTO) 9.8 X10'3 (1.8-7.7); NEUTROPHILS % (AUTO) 75.4 % (42-75); PLATELET COUNT 462 X10'3 (140-440); RED BLOOD COUNT 2.92 X10'6 (4.20-5.60); WHITE BLOOD COUNT 12.9 X10'3 (4.5-11.0)
--- NOTE | 2018-12-12 06:15 | NUR ---
Patient in room [facility]. I have received report from Margot Cantrell and had the opportunity to ask questions and assume patient care.
[2018-12-12 06:23] LABS: ALANINE AMINOTRANSFERASE 11 U/L (12-78); ALBUMIN 1.8 G/DL (3.4-5.0); ALBUMIN/GLOBULIN RATIO 0.4 (1.1-1.5); ALKALINE PHOSPHATASE 339 IU/L (46-116); ANION GAP 6 (8-16); ASPARTATE AMINO TRANSFERASE 15 U/L (10-37); BILIRUBIN,TOTAL 0.4 MG/DL (0.1-1.0); BLOOD UREA NITROGEN 15 MG/DL (7-18); BUN/CREATININE RATIO 9.5 (6.6-38.0); CALCIUM 8.6 MG/DL (8.5-10.1); CHLORIDE 106 MMOL/L (99-107); CREATININE 1.58 MG/DL (0.40-0.90); GLUCOSE 143 MG/DL (70-104); POTASSIUM 3.8 MMOL/L (3.5-5.1); SODIUM 141 MMOL/L (135-145); TOTAL CARBON DIOXIDE 28.9 MMOL/L (24-32); TOTAL PROTEIN 5.9 G/DL (6.4-8.2); eGFR 34 ML/MIN
--- NOTE | 2018-12-12 06:23 | NUR ---
Problems reprioritized. Patient report given, questions answered & plan of care reviewed with BLANE Clemente.
[2018-12-12 07:16] VITALS: BP 121/59
[2018-12-12] MEDS: lactobacillus rhamnosus 10,000 MMU CELLS/CAPSULE PO SCH ×2 (08:14→21:24)
[2018-12-12] MEDS: aspirin 325mg tablet, delayed-release (Ecotrin) PO SCH (08:14)
[2018-12-12] MEDS: amox tr/potassium clavulanate 875/125mg TAB PO SCH ×2 (08:14→17:32)
[2018-12-12] MEDS: amLODIPine 5mg tablet PO SCH (08:14)
[2018-12-12] MEDS: pantoprazole 40mg Tablet.DR PO SCH (08:14)
[2018-12-12] MEDS: nicotine 14mg patch - 24hr TD SCH (08:15)
[2018-12-12] MEDS: atorvastatin 20mg tablet PO SCH (08:15)
[2018-12-12] MEDS: enoxaparin 50mg/0.5ml (from 3ml vial) syringe SUBCUT SCH ×2 (08:16→21:25)
[2018-12-12 11:00] VITALS: BP 136/63
--- NOTE | 2018-12-12 12:15 | NUR ---
Reassessment: Per MD notes wound cultures growing MSSA and enterococcus faecalis. Patient's PO intake significantly improved now averaging 75-100% meeting nutrient needs. LBM 12/08. Per physical assessment pt reports it's normal to have a BM q 1-5 days and refusing MoM. D/w dietary to send power pudding with dinner tonight. Will continue to follow. Recommendations: 1) Continue CHO controlled diet 2) Monitor need for ONS 3) Routine bowel care 4) Wt per rx Addendum: 12/12/18 at [address] Amended: Links added.
--- NOTE | 2018-12-12 18:44 | NUR ---
Patient will not be covered with insulin tonight for nutritional/correctional part. According to Day Shift, RN, patient have not ate all day and for dinner patient ate 64gm of carbs. Patient's BG level has been trending down today, and before dinner it was 98mg/dL. Will assess BG level at HS and follow hyperglycemic protocol to cover patient.
--- NOTE | 2018-12-12 19:21 | NUR ---
Problems reprioritized. Patient report given, questions answered & plan of care reviewed with Margot ARGUELLES.
[2018-12-12 20:00] VITALS: BP 138/66
[2018-12-12] MEDS: insulin glargine (Lantus) pen - multi-dose SQ SCH (21:21)
[2018-12-13 00:05] VITALS: BP 131/60
[2018-12-13] MEDS: HYDROcodone/acetaminophen 10/325mg tab PO PRN ×2 (03:06→17:55)
--- NOTE | 2018-12-13 06:31 | NUR ---
Problems reprioritized. Patient report given, questions answered & plan of care reviewed with BLANE Leonard.
[2018-12-13 06:57] LABS: BASOPHILS # (AUTO) 0.1 X10'3 (0-0.2); EOSINOPHILS # (AUTO) 0.1 X10'3 (0-0.9); HEMATOCRIT 26.8 % (35.0-45.0); LYMPHOCYTES # (AUTO) 1.6 X10'3 (1.1-4.8); LYMPHOCYTES % (AUTO) 11.9 % (21-51); MEAN CORPUSCULAR HEMOGLOBIN 27.5 PG (27.0-31.0); MEAN CORPUSCULAR HGB CONC 33.4 g/dL (33.0-36.5); MEAN CORPUSCULAR VOLUME 82.2 FL (78-98); MEAN PLATELET VOLUME 7.7 FL (7.4-10.4); MONOCYTES # (AUTO) 1.2 X10'3 (0-0.9); MONOCYTES % (AUTO) 8.5 % (2-12); NEUTROPHILS # (AUTO) 10.7 X10'3 (1.8-7.7); NEUTROPHILS % (AUTO) 77.6 % (42-75); PLATELET COUNT 529 X10'3 (140-440); RED BLOOD COUNT 3.26 X10'6 (4.20-5.60); RED CELL DISTRIBUTION WIDTH 13.7 % (11.5-14.5); WHITE BLOOD COUNT 13.8 X10'3 (4.5-11.0)
[2018-12-13 07:00] VITALS: BP 102/54
[2018-12-13 07:09] LABS: ALBUMIN 2.1 G/DL (3.4-5.0); ANION GAP 8 (8-16); BLOOD UREA NITROGEN 15 MG/DL (7-18); BUN/CREATININE RATIO 10.3 (6.6-38.0); CALCIUM 9.3 MG/DL (8.5-10.1); CHLORIDE 106 MMOL/L (99-107); CREATININE 1.45 MG/DL (0.40-0.90); GLUCOSE 57 MG/DL (70-104); POTASSIUM 3.5 MMOL/L (3.5-5.1); SODIUM 142 MMOL/L (135-145); TOTAL CARBON DIOXIDE 27.7 MMOL/L (24-32); eGFR 37 ML/MIN
--- NOTE | 2018-12-13 07:09 | NUR ---
Patient in room [facility]. I have received report from Margot Pimentel RN and had the opportunity to ask questions and assume patient care.
[2018-12-13] MEDS: dextrose ORAL solution 15 GM/59 ML bottle PO PRN ×3 (07:19→17:17)
[2018-12-13] MEDS: amox tr/potassium clavulanate 875/125mg TAB PO SCH ×2 (09:31→17:16)
[2018-12-13] MEDS: aspirin 325mg tablet, delayed-release (Ecotrin) PO SCH (09:32)
[2018-12-13] MEDS: atorvastatin 20mg tablet PO SCH (09:32)
[2018-12-13] MEDS: pantoprazole 40mg Tablet.DR PO SCH (09:32)
[2018-12-13] MEDS: lactobacillus rhamnosus 10,000 MMU CELLS/CAPSULE PO SCH ×2 (09:32→20:41)
[2018-12-13] MEDS: nicotine 14mg patch - 24hr TD SCH (09:33)
[2018-12-13] MEDS: amLODIPine 5mg tablet PO SCH (10:07)
[2018-12-13] MEDS: HYDROcodone/acetaminophen 5mg/325mg tablet PO PRN ×2 (10:07→22:53)
[2018-12-13] MEDS: enoxaparin 50mg/0.5ml (from 3ml vial) syringe SUBCUT SCH ×2 (10:08→20:49)
[2018-12-13] MEDS: insulin Lispro (HumaLOG) vial - multi-dose SQ SCH (14:08)
--- NOTE | 2018-12-13 16:10 | NUR ---
Spoke top Yaquelin Vogt DRY PLASTERER regarding Pt being NPO. She wants us to not keep Pt NPO if Dr. Martel is not doing procedure today. We can put her NPO when we have a date for the angiogram procedure.
--- NOTE | 2018-12-13 18:15 | NUR ---
Patient in room [facility]. I have received report from Ericka ARGUELLES andHoracio ARGUELLES and had the opportunity to ask questions and assume patient care.
[2018-12-13 18:26] VITALS: BP 130/58
[2018-12-13 19:00] VITALS: BP 133/61
[2018-12-13] MEDS: insulin glargine (Lantus) pen - multi-dose SQ SCH (21:05)
[2018-12-13] MEDS: temazepam 15mg capsule PO PRN (22:53)
[2018-12-14] VITALS: BP 127/53
--- NOTE | 2018-12-14 06:37 | NUR ---
Patient in room [facility]. I have received report from Jaida ARGUELLES and had the opportunity to ask questions and assume patient care.
[2018-12-14 07:13] VITALS: BP 111/51
[2018-12-14] MEDS: nicotine 14mg patch - 24hr TD SCH (07:31)
[2018-12-14] MEDS: amox tr/potassium clavulanate 875/125mg TAB PO SCH ×2 (07:31→17:54)
[2018-12-14] MEDS: pantoprazole 40mg Tablet.DR PO SCH (07:31)
[2018-12-14] MEDS: lactobacillus rhamnosus 10,000 MMU CELLS/CAPSULE PO SCH ×2 (07:31→21:34)
[2018-12-14] MEDS: amLODIPine 5mg tablet PO SCH (07:32)
[2018-12-14] MEDS: atorvastatin 20mg tablet PO SCH (07:32)
[2018-12-14 08:53] LABS: ANION GAP 7 (8-16); BLOOD UREA NITROGEN 19 MG/DL (7-18); BUN/CREATININE RATIO 13.2 (6.6-38.0); CALCIUM 8.4 MG/DL (8.5-10.1); CHLORIDE 105 MMOL/L (99-107); CREATININE 1.44 MG/DL (0.40-0.90); GLUCOSE 154 MG/DL (70-104); SODIUM 138 MMOL/L (135-145); TOTAL CARBON DIOXIDE 26.2 MMOL/L (24-32); eGFR 38 ML/MIN
[2018-12-14] MEDS: aspirin 325mg tablet, delayed-release (Ecotrin) PO SCH (09:11)
[2018-12-14] MEDS: enoxaparin 50mg/0.5ml (from 3ml vial) syringe SUBCUT SCH ×2 (09:11→21:34)
[2018-12-14 11:51] VITALS: BP 121/58
[2018-12-14] MEDS: HYDROcodone/acetaminophen 10/325mg tab PO PRN ×2 (13:17→21:43)
[2018-12-14 18:00] VITALS: BP 121/57
[2018-12-14] MEDS: HYDROcodone/acetaminophen 5mg/325mg tablet PO PRN (18:00)
--- NOTE | 2018-12-14 18:42 | NUR ---
Patient in room [facility]. I have received report from Ericka ARGUELLES and Horacio ARGUELLES and had the opportunity to ask questions and assume patient care.
--- NOTE | 2018-12-14 18:47 | NUR ---
Problems reprioritized. Patient report given, questions answered & plan of care reviewed with Carmelina ARGUELLES.
[2018-12-14] MEDS: insulin glargine (Lantus) pen - multi-dose SQ SCH (21:00)
[2018-12-14] MEDS: temazepam 15mg capsule PO PRN (21:43)
[2018-12-15 00:44] VITALS: BP 134/60
[2018-12-15] MEDS: HYDROcodone/acetaminophen 10/325mg tab PO PRN (02:22)
--- NOTE | 2018-12-15 06:00 | NUR ---
Problems reprioritized. Patient report given, questions answered & plan of care reviewed with Jax ARGUELLES.
[2018-12-15 06:33] LABS: ANION GAP 8 (8-16); BLOOD UREA NITROGEN 19 MG/DL (7-18); BUN/CREATININE RATIO 13.4 (6.6-38.0); CALCIUM 8.8 MG/DL (8.5-10.1); CHLORIDE 106 MMOL/L (99-107); CREATININE 1.42 MG/DL (0.40-0.90); GLUCOSE 151 MG/DL (70-104); SODIUM 141 MMOL/L (135-145); TOTAL CARBON DIOXIDE 27.4 MMOL/L (24-32); eGFR 38 ML/MIN
[2018-12-15 07:21] VITALS: BP 128/57
[2018-12-15] MEDS: pantoprazole 40mg Tablet.DR PO SCH (07:23)
[2018-12-15] MEDS: atorvastatin 20mg tablet PO SCH (07:23)
[2018-12-15] MEDS: amLODIPine 5mg tablet PO SCH (07:23)
[2018-12-15] MEDS: lactobacillus rhamnosus 10,000 MMU CELLS/CAPSULE PO SCH ×2 (07:23→20:01)
[2018-12-15] MEDS: amox tr/potassium clavulanate 875/125mg TAB PO SCH ×2 (07:23→17:37)
[2018-12-15] MEDS: nicotine 14mg patch - 24hr TD SCH (07:24)
[2018-12-15] MEDS: aspirin 325mg tablet, delayed-release (Ecotrin) PO SCH (07:31)
[2018-12-15] MEDS: enoxaparin 50mg/0.5ml (from 3ml vial) syringe SUBCUT SCH ×2 (07:31→20:06)
[2018-12-15 07:52] LABS: BASOPHILS # (AUTO) 0.1 X10'3 (0-0.2); BASOPHILS % (AUTO) 1.4 % (0-1); EOSINOPHILS # (AUTO) 0.4 X10'3 (0-0.9); EOSINOPHILS % (AUTO) 3.7 % (0-6); HEMATOCRIT 23.3 % (35.0-45.0); LYMPHOCYTES # (AUTO) 2.1 X10'3 (1.1-4.8); LYMPHOCYTES % (AUTO) 22.2 % (21-51); MEAN CORPUSCULAR HEMOGLOBIN 28.5 PG (27.0-31.0); MEAN CORPUSCULAR HGB CONC 34.3 g/dL (33.0-36.5); MEAN CORPUSCULAR VOLUME 83.3 FL (78-98); MEAN PLATELET VOLUME 8.5 FL (7.4-10.4); MONOCYTES # (AUTO) 0.9 X10'3 (0-0.9); MONOCYTES % (AUTO) 9.1 % (2-12); NEUTROPHILS # (AUTO) 6.1 X10'3 (1.8-7.7); NEUTROPHILS % (AUTO) 63.6 % (42-75); PLATELET COUNT 483 X10'3 (140-440); RED CELL DISTRIBUTION WIDTH 14.1 % (11.5-14.5); WHITE BLOOD COUNT 9.6 X10'3 (4.5-11.0)
[2018-12-15 09:52] LABS: PARTIAL THROMBOPLASTIN TIME 34 SECONDS (22-32)
[2018-12-15 11:53] VITALS: BP 112/52
[2018-12-15] MEDS: normal saline 1000ml 1,000 ML IV SCH ×2 (12:12→21:40)
[2018-12-15 12:51] VITALS: BP 112/52
--- NOTE | 2018-12-15 13:06 | NUR ---
Problems reprioritized. Patient report given, questions answered & plan of care reviewed with BLANE Garza.
--- NOTE | 2018-12-15 18:41 | NUR ---
Problems reprioritized. Patient report given, questions answered & plan of care reviewed with MINDY ARGUELLES.
--- NOTE | 2018-12-15 18:45 | NUR ---
Patient in room [facility]. I have received report from Kayla ARGUELLES and had the opportunity to ask questions and assume patient care.
[2018-12-15] MEDS: HYDROcodone/acetaminophen 5mg/325mg tablet PO PRN (20:04)
[2018-12-15] MEDS: temazepam 15mg capsule PO PRN (21:40)
[2018-12-15] MEDS: insulin glargine (Lantus) pen - multi-dose SQ SCH (21:55)
[2018-12-16] VITALS (11 sets, daily range): BP systolic 114–143; BP diastolic 49–78
[2018-12-16] MEDS: HYDROcodone/acetaminophen 10/325mg tab PO PRN ×3 (02:06→19:27)
[2018-12-16] MEDS: normal saline 1000ml 1,000 ML IV SCH ×2 (05:51→17:48)
--- NOTE | 2018-12-16 06:35 | NUR ---
Problems reprioritized. Patient report given, questions answered & plan of care reviewed with Mary RN.
--- NOTE | 2018-12-16 06:35 | NUR ---
Patient in room [facility]. I have received report from BLANE Navas and had the opportunity to ask questions and assume patient care.
[2018-12-16] MEDS: aspirin 325mg tablet, delayed-release (Ecotrin) PO SCH (07:06)
[2018-12-16] MEDS: atorvastatin 20mg tablet PO SCH (07:06)
[2018-12-16] MEDS: lactobacillus rhamnosus 10,000 MMU CELLS/CAPSULE PO SCH ×2 (07:06→19:26)
[2018-12-16] MEDS: enoxaparin 50mg/0.5ml (from 3ml vial) syringe SUBCUT SCH ×2 (07:07→19:27)
[2018-12-16] MEDS: pantoprazole 40mg Tablet.DR PO SCH (07:07)
[2018-12-16] MEDS: amox tr/potassium clavulanate 875/125mg TAB PO SCH ×2 (07:07→17:09)
[2018-12-16] MEDS: amLODIPine 5mg tablet PO SCH (07:17)
[2018-12-16] MEDS ORDERED: iohexol 350MG/ML 100ml bottle IV ONE (07:30)
[2018-12-16] MEDS ORDERED: heparin 1,000 UNITS/NS 500ml 500 ML ONE (07:30)
[2018-12-16] MEDS ORDERED: midazolam 2 mg/2 ml injection ONE (07:30)
[2018-12-16] MEDS ORDERED: LIDOcaine 1% (10mg/ml)w/preservative injection 20ml MDV ONE (07:30)
[2018-12-16] MEDS ORDERED: iohexol 350 MG/ML 50ML vial IV ONE (07:30)
[2018-12-16] MEDS ORDERED: fentaNYL/PF 50MCG/1 ML 2ML syringe ONE (07:30)
[2018-12-16] MEDS ORDERED: heparin 1,000unit/ml 10ml vial 10 ML ONE (07:30)
[2018-12-16] MEDS ORDERED: clopidogrel 300mg tablet ONE (08:55)
--- NOTE | 2018-12-16 09:06 | NUR ---
Report received from lab rn RN, Alistair.
--- NOTE | 2018-12-16 09:30 | NUR ---
Pt returned to room [facility] from test lab technician.
[2018-12-16] MEDS: nicotine 14mg patch - 24hr TD SCH (09:37)
[2018-12-16] MEDS ORDERED: OXAZEpam 15mg capsule PO PRN ×2 (09:50→10:50)
[2018-12-16] MEDS: aspirin 81mg tablet.DR PO SCH (10:53)
[2018-12-16] MEDS: insulin Lispro (HumaLOG) vial - multi-dose SQ SCH (13:22)
--- NOTE | 2018-12-16 18:30 | NUR ---
Problems reprioritized. Patient report given, questions answered & plan of care reviewed with BLANE Navas.
--- NOTE | 2018-12-16 19:16 | NUR ---
Patient in room [facility]. I have received report from Mary ARGUELLES and had the opportunity to ask questions and assume patient care.
[2018-12-16] MEDS: insulin glargine (Lantus) pen - multi-dose SQ SCH (21:00)
--- NOTE | 2018-12-16 23:44 | NUR ---
Patient was offered stool softners and declined to take any. She has not had BM since the 12/08/18 Addendum: 12/16/18 at 2346 by Eloise Blevins RN Amended: Links added.
[2018-12-17] VITALS: BP 145/64
[2018-12-17] MEDS: HYDROcodone/acetaminophen 10/325mg tab PO PRN ×2 (02:19→13:35)
[2018-12-17] MEDS: normal saline 1000ml 1,000 ML IV SCH ×2 (02:56→13:32)
[2018-12-17 05:51] LABS: BASOPHILS # (AUTO) 0.1 X10'3 (0-0.2); EOSINOPHILS # (AUTO) 0.2 X10'3 (0-0.9); EOSINOPHILS % (AUTO) 1.6 % (0-6); HEMATOCRIT 25.4 % (35.0-45.0); HEMOGLOBIN 8.4 g/dl (12.0-16.0); LYMPHOCYTES # (AUTO) 1.5 X10'3 (1.1-4.8); LYMPHOCYTES % (AUTO) 11.5 % (21-51); MEAN CORPUSCULAR HEMOGLOBIN 27.6 PG (27.0-31.0); MEAN CORPUSCULAR HGB CONC 33.3 g/dL (33.0-36.5); MEAN CORPUSCULAR VOLUME 82.9 FL (78-98); MEAN PLATELET VOLUME 8.8 FL (7.4-10.4); MONOCYTES % (AUTO) 7.7 % (2-12); NEUTROPHILS % (AUTO) 78.2 % (42-75); PLATELET COUNT 453 X10'3 (140-440); RED BLOOD COUNT 3.06 X10'6 (4.20-5.60); RED CELL DISTRIBUTION WIDTH 14.1 % (11.5-14.5); WHITE BLOOD COUNT 12.8 X10'3 (4.5-11.0)
[2018-12-17 06:12] LABS: ANION GAP 11 (8-16); BLOOD UREA NITROGEN 15 MG/DL (7-18); CALCIUM 8.2 MG/DL (8.5-10.1); CHLORIDE 105 MMOL/L (99-107); CHOL/HDL RATIO 3.9 (0.00-4.99); CHOLESTEROL 110 MG/DL (0-200); CREATININE 1.07 MG/DL (0.40-0.90); GLUCOSE 157 MG/DL (70-104); HDL CHOLESTEROL 28 MG/DL (35-60); LDL CHOLESTEROL 62 MG/DL (50-100); POTASSIUM 3.7 MMOL/L (3.5-5.1); SODIUM 138 MMOL/L (135-145); TOTAL CARBON DIOXIDE 22.2 MMOL/L (24-32); TRIGLYCERIDES 97 MG/DL (20-135); eGFR 53 ML/MIN
--- NOTE | 2018-12-17 06:20 | NUR ---
Patient in room [facility]. I have received report from BLANE Navas and had the opportunity to ask questions and assume patient care.
[2018-12-17 06:30] VITALS: BP 137/65
[2018-12-17] MEDS ORDERED: clopidogrel 75mg tablet PO SCH (08:00)
[2018-12-17] MEDS: insulin Lispro (HumaLOG) vial - multi-dose SQ SCH ×2 (08:29→13:31)
[2018-12-17] MEDS: amLODIPine 5mg tablet PO SCH (08:33)
[2018-12-17] MEDS: lactobacillus rhamnosus 10,000 MMU CELLS/CAPSULE PO SCH (08:33)
[2018-12-17] MEDS: amox tr/potassium clavulanate 875/125mg TAB PO SCH (08:33)
[2018-12-17] MEDS: pantoprazole 40mg Tablet.DR PO SCH (08:33)
[2018-12-17] MEDS: aspirin 81mg tablet.DR PO SCH (08:33)
[2018-12-17] MEDS: nicotine 14mg patch - 24hr TD SCH (08:34)
[2018-12-17] MEDS: atorvastatin 20mg tablet PO SCH (08:34)
[2018-12-17] MEDS: enoxaparin 50mg/0.5ml (from 3ml vial) syringe SUBCUT SCH (09:26)
[2018-12-17] MEDS: ondansetron/PF 4mg/2ml inj IV PRN (10:25)
--- NOTE | 2018-12-17 10:28 | NUR ---
Patient vomiting, clear fluid, Zofran given per order.
[2018-12-17 11:30] VITALS: BP 121/54
--- NOTE | 2018-12-17 14:45 | NUR ---
DC inst provided to pt. IV DC'd, tip intact. All belongings sent w/pt. [facility] picked up pt for transport to [place].
== END 2018-12-17 14:50 | DRG 853 ==
LOC: ER 02:52 → SUR 3N 08:10
PROVIDERS: ADMIT Internal Medicine; ATTEND Family Medicine
PROC: 0Y6N0Z9 Detachment at Left Foot, Partial 1st Ray, Open Approach (ICD-10-PCS; 2018-12-04)
PROC: 0Y6N0ZB Detachment at Left Foot, Partial 2nd Ray, Open Approach (ICD-10-PCS; 2018-12-04)
PROC: 0Y6N0ZC Detachment at Left Foot, Partial 3rd Ray, Open Approach (ICD-10-PCS; 2018-12-04)
PROC: 0Y6N0ZD Detachment at Left Foot, Partial 4th Ray, Open Approach (ICD-10-PCS; 2018-12-04)
PROC: 0Y6N0ZF Detachment at Left Foot, Partial 5th Ray, Open Approach (ICD-10-PCS; 2018-12-04)
PROC: 047L3EZ Dilation of Left Femoral Artery with Two Intraluminal Devices, Percutaneous Approach (ICD-10-PCS; principal; 2018-12-16)
PROC: 047U3ZZ Dilation of Left Peroneal Artery, Percutaneous Approach (ICD-10-PCS; 2018-12-16)
PROC: B41D1ZZ Fluoroscopy of Aorta and Bilateral Lower Extremity Arteries using Low Osmolar Contrast (ICD-10-PCS; 2018-12-16)
DX: A41.9 Sepsis, unspecified organism (principal); N17.0 Acute kidney failure with tubular necrosis; E43 Unspecified severe protein-calorie malnutrition; M00.9 Pyogenic arthritis, unspecified; L03.116 Cellulitis of left lower limb; M86.172 Other acute osteomyelitis, left ankle and foot; L02.612 Cutaneous abscess of left foot; E11.621 Type 2 diabetes mellitus with foot ulcer; E11.51 Type 2 diabetes mellitus with diabetic peripheral angiopathy without gangrene; E11.69 Type 2 diabetes mellitus with other specified complication; E78.5 Hyperlipidemia, unspecified; F12.90 Cannabis use, unspecified, uncomplicated; F17.200 Nicotine dependence, unspecified, uncomplicated; G47.00 Insomnia, unspecified; Z60.2 Problems related to living alone; B95.2 Enterococcus as the cause of diseases classified elsewhere; I12.9 Hypertensive chronic kidney disease with stage 1 through stage 4 chronic kidney disease, or unspecified chronic kidney disease; L97.529 Non-pressure chronic ulcer of other part of left foot with unspecified severity; I70.203 Unspecified atherosclerosis of native arteries of extremities, bilateral legs; E11.22 Type 2 diabetes mellitus with diabetic chronic kidney disease; N18.9 Chronic kidney disease, unspecified; B95.61 Methicillin susceptible Staphylococcus aureus infection as the cause of diseases classified elsewhere; K21.9 Gastro-esophageal reflux disease without esophagitis; M60.872 Other myositis, left ankle and foot; Z95.820 Peripheral vascular angioplasty status with implants and grafts; Z79.82 Long term (current) use of aspirin; Z79.899 Other long term (current) drug therapy; Z88.6 Allergy status to analgesic agent; Z79.84 Long term (current) use of oral hypoglycemic drugs; Z71.6 Tobacco abuse counseling; Z68.21 Body mass index [BMI] 21.0-21.9, adult
CPT/HCPCS: 36140; 36246; 36415; 37226; 37228; 71045; 73660; 73723; 75630; 75716; 80048; 80053; 80061; 80202; 81001; 81025; 82948; 83036; 83605; 83735; 84145; 85025; 85610; 85651; 85730; 86140; 87040; 87070; 87077; 87081; 87186; 88305; 88311; 93005; 93306; 93922; 93925; 96365; 96375; 97110; 97112; 97116; 97162; 97530; 99152; 99153; 99285; A4215; A4618; A4620; A6222; A6258; A6446; A6449; A7000; A9579; C1725; C1760; C1769; C1876; C1894; G0378; J0360; J1170; J1644; J1650; J1815; J2001; J2175; J2250; J2405; J2543; J2704; J2765; J3010; J3370; J3475; J7030; J7050; J7120; Q9967